=== PATIENT | male | born 1990 | race African-American/Black ===

== ENCOUNTER 2018-01-21 13:41 | Emergency (ER) | payer SELFPAY ==
--- NOTE | 2018-01-21 14:48 | RAD ---
LUMBAR SPINE THREE VIEWS: History: Left lower back pain status post fall off bed five days ago. FINDINGS/IMPRESSION: No acute fracture or subluxation is seen. POS: OFF
[2018-01-21] MEDS ORDERED: Ketorolac Tromethamine 30 MG/ML VIAL ONE (14:54)
== END 2018-01-21 14:53 | disposition home or self-care (01) ==
LOC: ERS 13:41
DX: S39.012A Strain of muscle, fascia and tendon of lower back, initial encounter (principal); F17.210 Nicotine dependence, cigarettes, uncomplicated; Z71.6 Tobacco abuse counseling; W06.XXXA Fall from bed, initial encounter
CPT/HCPCS: 72100; 96372; 99406; J1885

== ENCOUNTER 2022-11-20 13:15 | Emergency (ER) | payer SELFPAY | END 2022-11-20 16:58 | disposition left against medical advice (07) | LOC: ERS 13:15 | DX: Z53.21 Procedure and treatment not carried out due to patient leaving prior to being seen by health care provider (principal) ==